=== PATIENT | female | born 1965 | race Caucasian/White ===

== ENCOUNTER → 2023-09-04 13:52 | Outpatient (REF) | payer BC, SELFPAY | LOC: RAD 13:52 | PROVIDERS: ATTENDING PHYSICIAN Family Medicine | DX: I83.899 Varicose veins of unspecified lower extremity with other complications (principal) | CPT/HCPCS: 93970 ==

== ENCOUNTER 2023-10-04 06:58 | Day surgery (SDC) | payer BC, SELFPAY ==
[2023-09-30 09:46] LABS: % Basophils 0.6 % (0-2); % Eosinophils 1.6 % (0-6); % Immature Granulocytes 0.5 % (0-0.5); % Lymphocytes 25.5 % (20.5-51.1); % Monocytes 5.2 % (1.7-9.3); % Neutrophils 66.6 % (42.2-75.2); Absolute Basophils 0.1 10^3/uL (0-0.2); Absolute Eosinophils 0.2 10^3/uL (0-0.7); Absolute Immature Granulocytes 0.1 10^3/uL (0-0.05); Absolute Lymphocytes 2.8 10^3/uL (1.2-3.4); Absolute Monocytes 0.6 10^3/uL (0.1-0.6); Absolute Neutrophils 7.4 10^3/uL (1.4-6.5); Hematocrit 44.3 % (37.0-47.0); Hemoglobin 15.1 g/dL (12.0-16.0); Mean Corp Hgb Conc. 34.1 g/dL (33.0-37.0); Mean Corpuscular Hgb 28.6 pg (27.0-31.0); Mean Corpuscular Volume 83.9 fL (81.0-99.0); Nucleated Red Blood Cells % 0 %; Platelet Count 404 10^3/uL (130-400); Red Blood Cell Count 5.28 10^6/uL (4.20-5.40); Red Cell Dist. Width 12.6 % (11.5-14.5); White Blood Cell Count 11.1 10^3/uL (4.8-10.8)
[2023-09-30 09:57] LABS: APTT 30.2 Sec (23.4-35.0)
[2023-09-30 09:59] LABS: Blood Urea Nitrogen 14 mg/dl (7-17); Calcium 9.5 mg/dl (8.4-10.2); Carbon Dioxide 25 mmol/L (22-30); Chloride 100 mmol/L (98-107); Glucose 106 mg/dl (70-99); Potassium 4.3 mmol/L (3.5-5.1); Sodium 133 mmol/L (135-145); eGFR > 60.00
[2023-09-30 11:07] VITALS: BMI 35.3
--- NOTE | 2023-09-30 13:29 | PTCARENOTE ---
Patients 09/29 EKG abnormal- reviwed by Dr. Madrigal- no additional interventions required
[2023-10-04] VITALS (12 sets, daily range): BP systolic 104–157; BP diastolic 50–86
[2023-10-04] MEDS: PERIDEX 0.12% ORAL RINSE 15 ML PO (07:45)
[2023-10-04] MEDS: BACTROBAN NASAL 1 GRAM NASAL (07:45)
[2023-10-04] MEDS: NSS 500 IV (08:34)
--- NOTE | 2023-10-04 09:08 | W.SUR.PREOP ---
Pre-Operative Surgical Note
-
I have examined this patient prior to the performance of the scheduled procedure.
The patient's condition is unchanged from the time of the current History and
Physical and the patient is able to undergo the scheduled procedure.
--- NOTE | 2023-10-04 10:24 | W.IMMPOSTOP ---
Surgical Immed Post Op Note
-
Primary Surgeon: Johnnie Sandoval III, MD
Assisting Surgeon: Brian Riggs MD
Pre-op Diagnosis: Varicose Veins
Post-op Diagnosis: Varicose Veins
Procedure Performed: Stab Phlebectomy, LLE
Anesthesia Type: General
Specimen / Cultures: Varicose Veins
Estimated Blood Loss: 18cc
Complications: NA
Operative Findings:
Superficial vessels identified and marked preoperatively. 6 superficial stab incisions were made to expose the reticular veins. Hemostats were used to control and remove the veins. 4/6 sites were closed with nylon sutures, with remaining closed with
skin glue. Xeroform gauze overlaid and covered with LAURI wrap.
[2023-10-04] MEDS: SUBLIMAZE 25 MCG IV ×2 (10:29→10:43)
--- NOTE | 2023-10-04 11:10 | OR.RPT ---
Operative Report
Operative Report
Date of Operation: 10/04/2023
Pre Op Diagnosis: Bleeding reticular veins, left lower extremity
Post Op Diagnosis: Bleeding reticular veins, left lower extremity
Procedure: Stab phlebectomies of left lower extremity reticular/varicose veins (6 total stab incisions)
Surgeon: Johnnie Sandoval III, MD
State Assessed Properties Director: Brian Easton MD PGY-1
Anesthesia: General
Complications: None
Estimated Blood Loss: 20 cc
History and Indications for Procedure: 57-year-old female with bleeding episode from superficial reticular veins involving her left distal easotn and ankle. No superficial venous reflux was identified on preoperative venous insufficiency duplex. Due
to the significant bleeding event I recommended stab phlebectomy of the area in question. In the preoperative holding area I marked the varicosities and reticular veins in her left easton and ankle around the area of concern.
Procedure in Detail: Inez Tavares was correctly identified and placed supine on the operating table. After adequate induction of anesthesia the table was placed in reverse Trendelenburg and her left lower extremity and foot were prepped and draped in
the usual sterile fashion. She received preoperative antibiotics. A timeout procedure was performed with the nursing and anesthesia staff confirming the patient's identity as well as the nature and laterality of the procedure.
Using an ophthalmic blade, stab incisions were made over the marked varicosities and reticular veins surrounding the area of concern. Small hooks and fine hemostats were then used to pull up vein segments gently from each stab incision. The
proximal and distal vein segments were then avulsed from each stab incision. A total of 6 separate stab incisions were made to treat the entire area of concern. Following this the wounds were irrigated with saline solution. Hemostasis was
achieved in the wound beds by direct manual pressure. The small stab incisions were closed with skin glue. The larger stab incisions were closed with interrupted 3-0 nylon sutures. Sterile dressings were applied. The lower leg was wrapped in an
Thompson wrap.
The patient tolerated the procedure well was taken to the recovery room in stable condition.
Attestation: I was present and responsible for the entire procedure
Signed:
Johnnie Sandoval III, MD
[facility]
[phone] (cell)
== END 2023-10-04 13:00 | disposition home or self-care (01) ==
LOC: CATH 06:58
PROVIDERS: ATTENDING PHYSICIAN Surgery Vascular Surgery; FAMILY PHYSICIAN Family Medicine
DX: I83.892 Varicose veins of left lower extremity with other complications (principal)
CPT/HCPCS: 37799; 88304; 36415; 80048; 85025; 85610; 85730; 93005

== ENCOUNTER → 2023-11-04 13:39 | Outpatient (REF) | payer BC, SELFPAY | LOC: HWRAD 13:39 | PROVIDERS: ATTENDING PHYSICIAN Registered Nurse; FAMILY PHYSICIAN Family Medicine | DX: I86.8 Varicose veins of other specified sites (principal) | CPT/HCPCS: 74174; Q9967 ==

== ENCOUNTER 2024-02-20 18:06 | Inpatient (IN) | payer BC, SELFPAY ==
[2024-02-20] VITALS (9 sets, daily range): BP systolic 141–184; BP diastolic 72–89; BMI 34.7; BMI 34.2
--- NOTE | 2024-02-20 11:06 | ED.GENMED ---
History of Present Illness
General
Chief Complaint: Abdominal Pain
Source: patient and spouse
Exam Limitations: none
Time Seen by Provider: 02/20/24 10:28
Nursing documentation reviewed up to this point in time: agreed with
History of Present Illness
History of Present Illness:
58-year-old female with past medical history of hypertension presenting to the emergency department today with concerns of upper abdominal pain intermittent over the past few months has been on Protonix worsening over the past 2 days severe this
morning associated nausea and dry heaving. No diarrhea. No chest pain or shortness of breath. She has an appoint with GI in 3 weeks.
Past History
Past History
ED Past Medical History: HTN
ED Past Surgical History: (X 2)
Social History
Tobacco: Former smoker
Alcohol: Occasional
Personal:
Living: with family
Review of Systems
Review of Systems
Allergies reviewed?: Yes
All Other Systems: ROS reviewed and negative except as documented in HPI and ROS
Phy Exam
Physical Exam
Physical Exam:
GENERAL: Alert , in no apparent distress
EYE: pupils equal and reactive
NECK: Supple, no significant adenopathy.
ENT: o/p clr, mmm.
CARDIAC: Regular rate and rhythm .
LUNGS: Clear breath sounds bilaterally, no acute respiratory distress, no wheezes/rales/rhonchi
ABDOMEN: Soft, without focal tenderness, no r/g, no cvat
NEUROLOGICAL: Alert and oriented, no focal neuro deficits
SKIN: Warm and dry, skin intact.
MUSCULOSKELETAL: No edema, well perfused.
PSYCH: Normal and appropriate interaction.
Course
Orders/Labs/Results
Orders:
Orders
02/20/24 10:44
0.9% Sodium Chloride 1000 ml [Nss] 1,000 ml IV BOLUS
Famotidine [Pepcid] 20 mg IV NOW STA
Ondansetron Injectable [Zofran] 4 mg IV NOW STA
US Abdomen Complete/Upper Urgent
Comment:
Reason For Exam: RUQ pain
02/20/24 11:02
Basic Metabolic Panel Urgent
Complete Blood Count/With Diff Urgent
Lipase Urgent
02/20/24 12:43
Add On- LAB Stat
Tests Added?: Hepatic function panel bilirubin
Add On- LAB Urgent
Tests Added?: lft's
02/20/24 14:14
Urinalysis Reflex To Culture Urgent
Date Specimen was Collected: 02/20/24
Time Specimen was Collected: 11:01
Urine Microscopic Reflex Cult Urgent
02/20/24 15:08
0.9% Sodium Chloride 1000 ml [Nss] 1,000 ml IV BOLUS
02/20/24 16:00
Wnjxz-Pliu-Mwsytwi Routine
Abnormal Lab Results
02/20/24 02/20/24
11:02 14:14
WBC 15.6 H 10^3/uL
(4.8-10.8)
Abs Immat Gran (auto) 0.1 H 10^3/uL
(0-0.05)
Absolute Neuts (auto) 13.8 H 10^3/uL
(1.4-6.5)
Absolute Lymphs (auto) 0.9 L 10^3/uL
(1.2-3.4)
Absolute Monos (auto) 0.7 H 10^3/uL
(0.1-0.6)
Immature Gran % 0.6 H %
(0-0.5)
Neutrophils % 88.6 H %
(42.2-75.2)
Lymphocytes % 6.0 L %
(20.5-51.1)
Glucose 126 H mg/dl
(70-99)
Lipase > 4000 H* U/L
(23-300)
Urine Ketones 3+ A
(Negative)
Urine Bilirubin 1+ A
(Negative)
Urine Urobilinogen 2+ A
(Neg - 1+)
Leukocyte Esterase Rfl Trace A
(Negative)
Urine RBC 3-6 A /HPF
(0-2)
Urine Bacteria (Reflex) Few A
(Negative)
02/20/24 11:02
02/20/24 11:02
Vital Signs
Initial and Last Documented VS:
Initial Vital Signs
Temp Pulse Resp BP Pulse Ox
99.4 F 91 16 141/75 98
02/20/24 09:55 02/20/24 09:55 02/20/24 09:55 02/20/24 09:55 02/20/24 09:55
Last Documented Vital Signs
Temp Pulse Resp BP Pulse Ox
99.4 F 91 16 150/74 98
02/20/24 09:55 02/20/24 09:55 02/20/24 09:55 02/20/24 15:00 02/20/24 15:15
MDM/Problems Addressed
MDM/Problems Addressed:
58-year-old female presenting to the emergency department today with concerns of upper abdominal pain worsening over the past 2 days. This morning but since has improved. Has been taking Protonix for likely gastritis or reflux. Has a GI follow-up
in 3 weeks. Here she is some minimal tenderness to the upper abdominal region as well as the right upper quadrant. Lipase resulting greater than 4000 concerning for acute pancreatitis. Ultrasound showing gallstones and potential stone within the
common bile duct with upper limits of normal at 6 mm. Patient with potential gallstone pancreatitis. LFTs initially hemolyzed repeated sample hemolyzed as well. Sample also hemolyzed. Doing well in ER no significant worsening is is discussed
with GI and admitted for further assessment. Additional lab sample sent for LFTs.
*Critical Care Note
Total Time (30-74mins, 75-104mins- exclusive of procedures): Not Applicable
ED Attending Note
-
Portions of this chart may have been created with voice recognition software.� Occasional wrong word or��sound alike� substitutions may have occurred due to the inherent limitations of voice recognition software.
Discharge Plan
Departure
Patient Disposition: Admit
Date of Disposition: 02/20/24
Time of Disposition: 16:08
Admit to: Med/Surg
Admit to doctor: makeda
Presentation/result/management discussed w/ accepting MD/DO: Hospitalist
Patient with high blood pressure during this ER visit?: No
Condition: Good
Covid-19: Not Applicable
Discharge Problem:
Acute pancreatitis
Prescriptions:
No Action
valsartan 80 mg Tablet
80 mg PO HS
Premarin 0.625 mg Tablet
0.625 mg PO DAILY
norethindrone acetate 5 mg Tablet
5 mg PO DAILY
Theragen Tablet
1 tab PO DAILY
pantoprazole [Protonix] 40 mg Tablet,Delayed Release (Dr/Ec)
40 mg PO DAILY
Referrals:
Jimy Shetty MD [Family Provider] -
Interventions
Interventions:
*Risk Screen - Suicide Last Done: 02/20/24 10:51
*General Assessment Last Done: 02/20/24 10:51
*Neglect/Abuse Screening Last Done: 02/20/24 10:51
ED- Fall Risk Assessment Last Done: 02/20/24 10:56
*ED COVID-19 Vaccine History Last Done: 02/20/24 10:51
RD-Enbijr-Merfsqehpw Assessment Last Done: 02/20/24 10:51
Discharge Date and Time
Print Language: FAROESE
[2024-02-20] MEDS: NSS 1000 IV ×2 (11:12→15:23)
[2024-02-20] MEDS: PEPCID 20 MG IV (11:12)
[2024-02-20] MEDS: ZOFRAN 4 MG IV (11:13)
[2024-02-20 11:18] LABS: % Basophils 0.3 % (0-2); % Eosinophils 0.1 % (0-6); % Immature Granulocytes 0.6 % (0-0.5); % Monocytes 4.4 % (1.7-9.3); % Neutrophils 88.6 % (42.2-75.2); Absolute Basophils 0.1 10^3/uL (0-0.2); Absolute Immature Granulocytes 0.1 10^3/uL (0-0.05); Absolute Lymphocytes 0.9 10^3/uL (1.2-3.4); Absolute Monocytes 0.7 10^3/uL (0.1-0.6); Absolute Neutrophils 13.8 10^3/uL (1.4-6.5); Hematocrit 39.2 % (37.0-47.0); Hemoglobin 13.8 g/dL (12.0-16.0); Mean Corp Hgb Conc. 35.2 g/dL (33.0-37.0); Mean Corpuscular Hgb 28.9 pg (27.0-31.0); Nucleated Red Blood Cells % 0 %; Platelet Count 335 10^3/uL (130-400); Red Blood Cell Count 4.78 10^6/uL (4.20-5.40); Red Cell Dist. Width 13.2 % (11.5-14.5); White Blood Cell Count 15.6 10^3/uL (4.8-10.8)
[2024-02-20 11:31] LABS: Blood Urea Nitrogen 11 mg/dl (7-17); Calcium 9.5 mg/dl (8.4-10.2); Carbon Dioxide 24 mmol/L (22-30); Chloride 106 mmol/L (98-107); Estimated Creatinine Clearance 104 ml/min; Glucose 126 mg/dl (70-99); Sodium 137 mmol/L (135-145); eGFR > 60.00
[2024-02-20 11:41] LABS: Lipase > 4000 U/L (23-300)
[2024-02-20 14:38] LABS: Urine Albumin Trace (Neg - Trace); Urine Bilirubin 1+ (Negative); Urine Character Clear (Clear); Urine Color Yellow; Urine Glucose Negative (Negative); Urine Ketone 3+ (Negative); Urine Leukocyte Trace (Negative); Urine Nitrite Negative (Negative); Urine Occult Blood Negative (Negative); Urine Urobilinogen 2+ (Neg - 1+)
[2024-02-20 14:56] LABS: Urine Squamous Cell 26-30 /LPF (Few)
[2024-02-20 15:00] LABS: Urine Bacteria Few (Negative)
--- NOTE | 2024-02-20 16:22 | CON.GI ---
Addendum entered and electronically signed by Gissell Buck DO 02/20/24 16:49:
I saw and examined the patient.
The CASH POSTER or PA's note was reviewed and I agree with the note.
Comment: Inez is a 58-year-old female with past medical history of hypertension admitted with complaints of of right upper quadrant abdominal pain which has been worsening over the past few months despite Protonix, this morning developed nausea and
dry heaving which is what prompted her to come in for evaluation. On arrival she was found to have a leukocytosis of 15,000, lipase greater than 4000, LFTs currently pending. BUN 11. Abdominal US showed cholelithiasis w/o cholecystitis, with stone
in CBD c/w choledocholithiasis. At time of evaluation, patients abdominal pain had resolved, though, had received pain medication prior.
Gallstone Pancreatitis c/b choledocholithiasis
-leukocytosis, afebrile, hemodynamically stable, no signs of cholangitis
-IVF
-antiemetics, analgesia
-NPO PMN for possible ERCP tomorrow --> given improvement in pain, will check MRI/MRCP
-surgical consult for eventual cholecystectomy
Original Note:
Consultation
-
Date/Time Consultation Requested: 02/20/24 1600
Date/Time Consultation Performed: 02/20/24 1600
Requesting Provider: Dr. Dudley
Performing Provider: Dr. Buck/YUDY Acharya
Reason for Consultation: choledocholithiasis, pancreatitis
Medical History
Chief Complaint / HPI
Chief Complaint: abd pain
History of Present Illness:
58-year-old female with past medical history of hypertension, venous insufficiency, seasonal allergies presents to the emergency room with severe abdominal pain, nausea and vomiting. Asked to evaluate for choledocholithiasis and pancreatitis. The
patient states that on January 11 she developed intermittent epigastric pain that was sharp. It was also associated with intermittent nausea and vomiting. Patient had progressive symptoms starting this past Saturday. She also noted bilirubinuria
this morning. After eating eggs, avocado and toast last evening she had significant pain with doubling over associated with nausea and vomiting. She presented to her PCPs office and at the request she came over to the hospital. She did feel hot
and cold. Tmax here was 99.4. She never kept the temperature at home. She denies any melena, hematochezia, dysphagia or dyne aphasia. No early satiety or unintentional weight loss. She did have bilirubinuria. She has not had a bowel movement
in the past day. She did not notice any acholic stools prior to this. She has had no recent change in medications. She does not drink any alcohol. She states she had an episode similar to this approximately a year ago. At that time she had labs
and ultrasound performed was told they were normal.Prior to her arrival in the emergency room she was seen by PCP as an outpatient started on pantoprazole without any relief. She also had outpatient labs which per her report were within normal
limits. At the present time she has WBC count of 15.6, hemoglobin 13.8, medic at 39.2, platelet count 335, sodium of 137, potassium hemolyzed, chloride 106, CO2 24, BUN 11, creatinine 0.6, glucose 126, calcium 9.5 LFTs are pending as the labs were
hemolyzed. Lipase greater than 4000. UA was positive for ketones, positive for bilirubin, positive for urobilinogen, positive for trace leukocytes positive for 3-5 RBCs with few bacteria and trace albumin. Ultrasound of the abdomen shows
cholelithiasis without any evidence of acute cholecystitis. There is a stone within the common bile duct that measures 6 mm. The common bile duct also measured 6 mm. The pancreas appears normal on ultrasound imaging.
Past Medical History
Past Medical History: HTN and Other (Venous insufficiency, seasonal allergies)
Past Surgical History: and Other (Left leg phlebectomy)
Social History
Tobacco: Non-Smoker
Alcohol: None
Drug: None
Personal:
Living: With Family
Employment: Employed
Family History
Family History: Other (Maternal aunt with history of colon cancer, no family history of IBD)
Allergies / Home Medications
Allergy/AdvReac Type Severity Reaction Status Date / Time
Sulfa (Sulfonamide Allergy SWELLING Verified 02/20/24 09:55
Antibiotics) AND REDNESS
�Medication �Instructions �Recorded
conjugated estrogens 0.625 mg 0.625 mg PO DAILY 09/26/23
tablet (Premarin)
norethindrone acetate 5 mg tablet 5 mg PO DAILY 09/26/23
valsartan 80 mg tablet 80 mg PO HS 09/26/23
pantoprazole 40 mg tablet,delayed 40 mg PO DAILY 02/20/24
release (Protonix)
therapeutic multivitamin 1 tab PO DAILY 02/20/24
Review of Systems
-
All other systems: A 12 pt ROS was Negative except as stated above in HPI
Vital Signs
Temp Pulse Resp BP Pulse Ox
99.4 F 91 16 150/74 98
02/20/24 09:55 02/20/24 09:55 02/20/24 09:55 02/20/24 15:00 02/20/24 15:15
Physical Exam
Exam
General: No Apparent Distress
HEENT: Anicteric
Respiratory: Clear
Cardiac: Regular Rhythm
GI: Soft, Non Tender, Non Distended and Normal Bowel Sounds
Musculoskeletal: No Edema
Skin: Warm and Dry
Neuro: AO x 3
Psych: Calm
Results
WBC 15.6 10^3/uL (4.8-10.8) H 02/20/24 11:02
Hgb 13.8 g/dL (12.0-16.0) 02/20/24 11:02
Hct 39.2 % (37.0-47.0) 02/20/24 11:02
MCV 82.0 fL (81.0-99.0) 02/20/24 11:02
Plt Count 335 10^3/uL (130-400) 02/20/24 11:02
Absolute Neuts (auto) 13.8 10^3/uL (1.4-6.5) H 02/20/24 11:02
Sodium 137 mmol/L (135-145) 02/20/24 11:02
Potassium mmol/L (3.5-5.1) 02/20/24 11:02
Chloride 106 mmol/L (98-107) 02/20/24 11:02
Carbon Dioxide 24 mmol/L (22-30) 02/20/24 11:02
BUN 11 mg/dl (7-17) 02/20/24 11:02
Creatinine 0.6 mg/dL (0.6-1.0) 02/20/24 11:02
Calcium 9.5 mg/dl (8.4-10.2) 02/20/24 11:02
Total Bilirubin Cancelled 02/20/24 15:12
AST Cancelled 02/20/24 15:12
ALT Cancelled 02/20/24 15:12
Alkaline Phosphatase Cancelled 02/20/24 15:12
Lipase > 4000 U/L (23-300) H* 02/20/24 11:02
Diagnostic Image Results:
US Abd:
IMPRESSION:
Cholelithiasis without evidence of acute cholecystitis.
There is a stone within the common bile duct. The common bile duct is upper limits of normal at 6 mm. No evidence of intrahepatic biliary ductal dilation. Consider correlation with lab values if there is concern for biliary obstruction.
Prior GI Procedures:
EGD: Never
Colonoscopy: 09/10/2016 ([facility]): - Perianal skin tag found on perianal exam.
- Non-bleeding internal hemorrhoids.
- One 3 mm polyp in the sigmoid colon, removed with a
jumbo cold forceps. Resected and retrieved. (Hyperplastic polyp)
- Diverticulosis in the sigmoid colon.
- The examined portion of the ileum was normal.
- The examination was otherwise normal.
Assessment / Plan
-
58-year-old female with past medical history of hypertension, venous insufficiency, seasonal allergies presents to the emergency room with severe abdominal pain, nausea and vomiting. Asked to evaluate for choledocholithiasis and pancreatitis. The
patient states that on January 11 she developed intermittent epigastric pain that was sharp. It was also associated with intermittent nausea and vomiting. Patient had progressive symptoms starting this past Saturday. She also noted bilirubinuria
this morning. After eating eggs, avocado and toast last evening she had significant pain with doubling over associated with nausea and vomiting. She presented to her PCPs office and at the request she came over to the hospital. Patient currently
mildly febrile at 99.8. At the present time she has WBC count of 15.6, hemoglobin 13.8, medic at 39.2, platelet count 335, sodium of 137, potassium hemolyzed, chloride 106, CO2 24, BUN 11, creatinine 0.6, glucose 126, calcium 9.5 LFTs are pending
as the labs were hemolyzed. Lipase greater than 4000. UA was positive for ketones, positive for bilirubin, positive for urobilinogen, positive for trace leukocytes positive for 3-5 RBCs with few bacteria and trace albumin. Ultrasound of the
abdomen shows cholelithiasis without any evidence of acute cholecystitis. There is a stone within the common bile duct that measures 6 mm. The common bile duct also measured 6 mm. The pancreas appears normal on ultrasound imaging.
Impression:
Choledocholithiasis-> 6 mm CBD stone seen on ultrasound
Gallstone pancreatitis
Cholelithiasis
Plan:
-Await LFTs, they have tried 3 times with hemolysis on all results
-Plan MRI/MRCP
-Aggressive IV fluids
-Incentive spirometer
-N.p.o. except for essential p.o. meds
-Will tentatively plan for ERCP tomorrow
-CBC, BMP, LFTs, PT/INR, lipase in a.m.
-Analgesia per internal medicine
-Antiemetics per internal medicine
-Recommend follow-up with surgery to discuss cholecystectomy, most likely as an outpatient.
-Further recommendations to be forthcoming
-
-
Thank you for consultation and allowing me to participate in the patient's care. Please call the voice data communications engineer GI physician during the after hours with any questions or concerns.
--- NOTE | 2024-02-20 17:09 | HPS.HSE ---
Family Physician
-
Family Physician: Jimy Shetty
Chief Complaint
-
epigastric pain
History of Present Illness
58-year-old female with past medical history of hypertension presenting to the emergency department today with concerns of upper abdominal pain intermittent since January 11 .in the beginning she was vomiting after eating .she was prescribed Protonix
assuming gastritis. She was continued to have intermittent epigastric pain .patient was following up with PCP. PCP recommended Protonix twice a day since Saturday. Today she noticed excruciating epigastric pain associate with dry heaves. Denied
any vomiting. Patient denied any fever, chills, chest pain, short of breath. Patient denied headache, dizziness, syncopal episode. Patient denied dysuria hematuria.
Ultrasound of abdomen with impression Cholelithiasis without evidence of acute cholecystitis.There is a stone within the common bile duct. The common bile duct is upper limits of normal at 6 mm. No evidence of intrahepatic biliary ductal dilation.
Consider correlation with lab values if there is concern for biliary obstruction.
Admitting for further management
Medical History
Past Medical History
Past Medical History: Reports Other
Additional Past Medical History:
Chronic venous insufficiency
Hypertension
Hyperlipidemia
GERD
Endocarditis
Past Surgical History: Reports Other
Additional Past Surgical History:
Stab phlebectomy
Social History
Tobacco: Former Smoker
Alcohol: None
Drug: None
Living: With Family
Employment: Employed
Family History
Family History: Not pertinent
Allergies / Home Medications
Allergies reflects when Allergies were last updated in [facility].
Home Medications with original date entered in [facility]
Allergy/Medication List:
Allergies
Allergy/AdvReac Type Severity Reaction Status Date / Time
Sulfa (Sulfonamide Allergy SWELLING Verified 02/20/24 09:55
Antibiotics) AND REDNESS
Home Medications
conjugated estrogens 0.625 mg tablet (Premarin) 0.625 mg PO DAILY 09/26/23
norethindrone acetate 5 mg tablet 5 mg PO DAILY 09/26/23
valsartan 80 mg tablet 80 mg PO HS 09/26/23
pantoprazole 40 mg tablet,delayed release (Protonix) 40 mg PO DAILY 02/20/24
therapeutic multivitamin 1 tab PO DAILY 02/20/24
Review of Systems
-
Constitutional: Reports No Symptoms
EENT: Reports No Symptoms
Respiratory: Reports No Symptoms
Cardiac: Reports No Symptoms
Abdomen/GI: Reports Abdominal Pain, Nausea and Vomiting
: Reports No Symptoms
Musculoskeletal: Reports No Symptoms
Skin: Reports No Symptoms
Neurological: Reports No Symptoms
Endocrine: Reports No Symptoms
Hematologic/Lymphatic: Reports No Symptoms
Psych: Reports No Symptoms
Physical Exam
Vital Signs
Vital Signs
Temp Pulse Resp BP Pulse Ox
99.4 F 91 16 150/74 98
02/20/24 09:55 02/20/24 09:55 02/20/24 09:55 02/20/24 15:00 02/20/24 15:15
Physical Exam
General: Well Developed, Well Nourished and No Apparent Distress
HEENT: NormoCephalic, Moist mucous membranes and Atraumatic
Respiratory: Clear
Cardiac: S1/S2 and Regular Rhythm; No Murmur or Rub
GI: Soft, Non Tender, Non Distended and Normal Bowel Sounds; No Organomegaly
Rectal: Deferred by Provider
Musculoskeletal: No Clubbing, No Cyanosis and No Edema
Skin: No Rash
Neuro: AO x 3 and Nonfocal/grossly intact
Psych: Calm
Laboratory Results
-
02/20/24 11:02
02/20/24 11:02
Laboratory Results
Total Bilirubin Cancelled 02/20/24 15:12
AST Cancelled 02/20/24 15:12
ALT Cancelled 02/20/24 15:12
Alkaline Phosphatase Cancelled 02/20/24 15:12
Lipase > 4000 U/L (23-300) H* 02/20/24 11:02
Data Reviewed
-
CT Scan: Report Reviewed by me
Lab Data: Labs Reviewed by me
Impression/Plan
-
# Acute pancreatitis possible gallstone pancreatitis
-Ultrasound showing cholelithiasis without evidence of acute cholecystitis.There is a stone within the common bile duct. The common bile duct is upper limits of normal at 6 mm. No evidence of intrahepatic biliary ductal dilation. Consider
correlation with lab values if there is concern for biliary obstruction.
-WBCs 15.6, patient is afebrile
-Lipase is greater than 4000
-LFTs pending
-Keep patient n.p.o.
-For ERCP tomorrow
-MRCP
-Zofran as needed for nausea vomiting, Dilaudid as needed for pain
-Fluids continued
-GI consulted
# Essential hypertension
-Blood pressure stable
-Losartan continued
# DVT prophylaxis
-Lovenox subcu
# CODE STATUS
-Full code
--- NOTE | 2024-02-20 18:10 | W.PN.UPDATE ---
Update Note
Progress Note Update
This note serves as an addendum to the H&P by YUDY Singh, on February 20, 2024.
History of Presenting Illness
58-year-old female with past medical history of hypertension presented to the emergency department today with concerns of upper abdominal pain intermittent since January 12, 2024. Patient had been on outpatient Protonix which was intensified recently
but had not been helping. Today, her epigastric pain got a whole lot worse.
Physical Exam
General: Not in acute distress
HEENT: Normocephalic
Respiratory: Clear to Auscultation Bilaterally
Cardiac: S1/S2 and Regular Rhythm
GI: Soft, Non Tender, Non Distended and Normal Bowel Sounds
Musculoskeletal: No Cyanosis and No Edema
Skin: Warm. Dry.
Neuro: AAO x 3 and Nonfocal/grossly intact
Psych: Calm
Assessment/Plan
# Acute pancreatitis possible gallstone pancreatitis
-Ultrasound showing cholelithiasis without evidence of acute cholecystitis.There is a stone within the common bile duct. The common bile duct is upper limits of normal at 6 mm. No evidence of intrahepatic biliary ductal dilation. Consider
correlation with lab values if there is concern for biliary obstruction.
-WBCs 15.6, patient is afebrile
-Lipase is greater than 4000
-LFTs pending
-Keep patient n.p.o.
-Pain control
-For ERCP tomorrow
-MRCP
-Zofran as needed for nausea vomiting, Dilaudid as needed for pain
-Continue aggressive IV fluids
-GI consulted, recommendations appreciated
# Essential hypertension
-Blood pressure stable
-Losartan continued
# DVT prophylaxis
-Lovenox subcu
# CODE STATUS
-Full code
--- NOTE | 2024-02-20 18:49 | PTCARENOTE ---
Patient received from ED, ambulated to bed in her room. AOx3, no acute complaints.
[2024-02-20 19:18] LABS: ALT (SGPT) 384 U/L (0-35); AST (SGOT) 294 U/L (14-36); Alkaline Phosphatase 157 U/L (38-126); Direct Bilirubin 0.5 mg/dl (0.0-0.4); Total Bilirubin 1.2 mg/dl (0.2-1.3); Total Protein 6.4 g/dl (6.3-8.2)
[2024-02-20] MEDS: LR 1000 IV (21:46)
[2024-02-20] MEDS: LOVENOX 40 MG SC (21:46)
[2024-02-20] MEDS: DIOVAN 80 MG PO (21:49)
[2024-02-21] VITALS (11 sets, daily range): BP systolic 142–176; BP diastolic 69–110
--- NOTE | 2024-02-21 04:16 | PTCARENOTE ---
This RN assumed care of this patient at 0330 am.
[2024-02-21] MEDS: LR IV ×3 (06:51→12:36)
[2024-02-21 07:07] LABS: Hematocrit 34.3 % (37.0-47.0); Hemoglobin 12.2 g/dL (12.0-16.0); Mean Corp Hgb Conc. 35.6 g/dL (33.0-37.0); Mean Corpuscular Hgb 29.3 pg (27.0-31.0); Mean Corpuscular Volume 82.3 fL (81.0-99.0); Mean Platelet Volume 9.2 fL (7.4-10.4); Platelet Count 318 10^3/uL (130-400); Red Blood Cell Count 4.17 10^6/uL (4.20-5.40); Red Cell Dist. Width 13.4 % (11.5-14.5); White Blood Cell Count 9.2 10^3/uL (4.8-10.8)
[2024-02-21 07:15] LABS: INR 1.13; PT 14.6 Sec (11.4-14.6)
[2024-02-21 07:33] LABS: ALT (SGPT) 296 U/L (0-35); AST (SGOT) 128 U/L (14-36); Albumin 3.5 g/dl (3.5-5.0); Alkaline Phosphatase 125 U/L (38-126); Blood Urea Nitrogen 9 mg/dl (7-17); Calcium 8.8 mg/dl (8.4-10.2); Carbon Dioxide 21 mmol/L (22-30); Chloride 111 mmol/L (98-107); Direct Bilirubin 0.2 mg/dl (0.0-0.4); Estimated Creatinine Clearance 103 ml/min; Glucose 83 mg/dl (70-99); Lipase 90 U/L (23-300); Potassium 3.8 mmol/L (3.5-5.1); Sodium 139 mmol/L (135-145); Total Bilirubin 0.9 mg/dl (0.2-1.3); Total Protein 5.7 g/dl (6.3-8.2); eGFR > 60.00
--- NOTE | 2024-02-21 08:00 | PTCARENOTE ---
Notified provider of patient's BP in AM - Amlodipine ordered.
[2024-02-21] MEDS: PREMARIN 0.625 MG PO (08:45)
[2024-02-21] MEDS: PROTONIX IV 40 MG IV (08:45)
[2024-02-21] MEDS: NSS (PRESERVATIVE FREE) 10 ML IV (08:45)
[2024-02-21] MEDS: NORVASC 2.5 MG PO (08:50)
[2024-02-21] MEDS: LR 1000 IV ×3 (09:48→23:40)
--- NOTE | 2024-02-21 15:25 | W.PN.UPDATE ---
Update Note
Progress Note Update
reviewed MRI with patient with narrowing and stone. Await Dr. Brandt input for ERCP this afternoon.
--- NOTE | 2024-02-21 15:30 | W.PN.HOSP.TC ---
Today's Communication/Plan
-
MRI abdomen results noted
Await GI input into ERCP
Assessment / Plan
Assessment / Plan
Physical Exam
General: Not in acute distress
HEENT: Normocephalic
Respiratory: Clear to Auscultation Bilaterally
Cardiac: S1/S2 and Regular Rhythm
GI: Soft, Non Tender, Non Distended and Normal Bowel Sounds
Musculoskeletal: No Cyanosis and No Edema
Skin: Warm. Dry.
Neuro: AAO x 3 and Nonfocal/grossly intact
Psych: Calm

MRI Abdomen, as per radiologist's report
IMPRESSION:
1. Segmental strictures in the distal common bile duct and right bile duct. Diagnostic possibilities are (1) primary sclerosing cholangitis, (2) infectious cholangitis, or (3) bile duct carcinoma.
2. Stone or debris in the common bile duct.
3. Mild edema around the left adrenal gland.

Assessment/Plan
# Acute pancreatitis possible gallstone pancreatitis
# Cholelithiasis
# Leukocytosis
-WBCs 15.6, patient is afebrile
-Lipase is greater than 4000
-LFTs improving
-Keep patient n.p.o. for now
-Pain control
-GI to evaluate for ERCP
-Zofran as needed for nausea vomiting, Dilaudid as needed for pain
-Continue aggressive IV fluids
-GI consulted, recommendations appreciated
# Essential hypertension
-Blood pressure high into the 170s and 180s
-Valsartan continued
-Added Amlodipine
# DVT prophylaxis
-Lovenox subcu
# CODE STATUS
-Full code
Anticipated Discharge: > 48 hours
Subjective/Interval History
-
Date of Service: February 21, 2024
Patient was seen and examined. She denied any abdominal pain or any other symptoms or complaints.
Objective Data
-
Labs:
Laboratory Results
02/21/24
06:24
WBC 9.2
Hgb 12.2
Hct 34.3 L
Plt Count 318
PT 14.6
INR 1.13
Sodium 139
Potassium 3.8
Chloride 111 H
Carbon Dioxide 21 L
BUN 9
Creatinine 0.6
Glucose 83
Calcium 8.8
Total Bilirubin 0.9
AST 128 H
ALT 296 H
Alkaline Phosphatase 125
Vital Signs:
Vital Signs
Temp Pulse Resp BP Pulse Ox
99 F 87 20 174/88 97
02/21/24 11:47 02/21/24 11:47 02/21/24 11:47 02/21/24 11:47 02/21/24 11:47
I&O
02/20/24 02/21/24 02/22/24
06:59 06:59 06:59
Intake Total 0 / 0
Balance 0 / 0
--- NOTE | 2024-02-21 16:56 | CM ---
manager science reviewed patient's chart and met with patient and patient lives with spouse in a multilevel home, was independent with adl's and ambulation, no dme
PCP: Dr. Jimy Shetty
Pharmacy; [facility].
Home when stable, no needs.
[2024-02-21] MEDS: LOVENOX SC (17:48)
[2024-02-21] MEDS: ZOFRAN 4 MG IV (19:20)
--- NOTE | 2024-02-21 20:13 | PTCARENOTE ---
Pt returned from ERCP. VSS. NSR/ST mon the monitor. No c/o at this time.
[2024-02-21] MEDS: DIOVAN 80 MG PO (20:59)
[2024-02-22 03:00] VITALS: BP 138/72
[2024-02-22] MEDS: LR 1000 IV (04:43)
[2024-02-22 07:08] LABS: Hematocrit 34.9 % (37.0-47.0); Hemoglobin 12.1 g/dL (12.0-16.0); Mean Corp Hgb Conc. 34.7 g/dL (33.0-37.0); Mean Corpuscular Hgb 28.5 pg (27.0-31.0); Mean Corpuscular Volume 82.1 fL (81.0-99.0); Mean Platelet Volume 9.6 fL (7.4-10.4); Platelet Count 325 10^3/uL (130-400); Red Blood Cell Count 4.25 10^6/uL (4.20-5.40); Red Cell Dist. Width 13.2 % (11.5-14.5); White Blood Cell Count 10.5 10^3/uL (4.8-10.8)
[2024-02-22 07:57] VITALS: BP 141/71
--- NOTE | 2024-02-22 08:56 | CON.GS ---
Consultation
-
Reason for Consultation: Gallstone pancreatitis
Medical History
-
Chief Complaint: Abdominal pain
History of Present Illness:
Patient is a 58-year-old female who has had intermittent postprandial epigastric abdominal pain since this past December. She had 1 similar episode a year or so ago prompting emergency department evaluation with a negative workup including no
gallstones visualized. Since December she has had recurrent episodes of postprandial epigastric pain. She is being treated for GERD with PPI but was having breakthrough symptoms after initially feeling as though she was getting some relief. The past
week her symptoms acutely deteriorated to the point that she was in intractable pain home and work prompting emergency department evaluation and identification of choledocholithiasis with gallstone mediated pancreatitis. Surgical consultation
requested for assistance with evaluation and treatment.
Patient states that she feels well this a.m. She has some mild lingering discomfort but no pain. No nausea. Appetite fair and beginning to return. No vomiting.
Past Medical History
Past Medical History: HTN and Other (Obesity with BMI of 34.2)
Past Surgical History: and Other (Stab phlebectomy left lower extremity,)
Social History
Tobacco: Non-Smoker
Alcohol: None
Living: With Family
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
Family History
Family History: Reviewed & Noncontributory
Allergies / Home Medications
Allergy/AdvReac Type Severity Reaction Status Date / Time
Sulfa (Sulfonamide Allergy SWELLING Verified 02/20/24 09:55
Antibiotics) AND REDNESS
�Medication �Instructions �Recorded �Confirmed �Type
conjugated estrogens 0.625 mg 0.625 mg PO DAILY Hormonal Agent 09/26/23 02/20/24 History
tablet (Premarin)
norethindrone acetate 5 mg tablet 5 mg PO DAILY Hormonal Agent 09/26/23 02/20/24 History
valsartan 80 mg tablet 80 mg PO HS Blood Pressure 09/26/23 02/20/24 History
pantoprazole 40 mg tablet,delayed 40 mg PO DAILY Gastrointestinal 02/20/24 02/20/24 History
release (Protonix) Issue
therapeutic multivitamin 1 tab PO DAILY Supplement 02/20/24 02/20/24 History
Review of Systems
-
History Source: Patient
All other systems: Negative unless noted
A 10 point review of systems was completed, and was negative except as per HPI.
Physical Exam
Vital Signs
Temp Pulse Resp BP Pulse Ox
98.3 F 75 20 141/71 97
02/22/24 07:57 02/22/24 07:57 02/22/24 07:57 02/22/24 07:57 02/22/24 07:57
02/21/24 02/22/24 02/23/24
06:59 06:59 06:59
Actual Weight 84.844 kg
Body Mass Index (BMI) 34.2
Lab Results
02/22/24 06:16
WBC 10.5 10^3/uL (4.8-10.8) 02/22/24 06:16
Hgb 12.1 g/dL (12.0-16.0) 02/22/24 06:16
Hct 34.9 % (37.0-47.0) L 02/22/24 06:16
Plt Count 325 10^3/uL (130-400) 02/22/24 06:16
Abs Immat Gran (auto) 0.1 10^3/uL (0-0.05) H 02/20/24 11:02
Neutrophils % 88.6 % (42.2-75.2) H 02/20/24 11:02
Physical Exam
General: Well Developed, Well Nourished, No Apparent Distress and Comfortable
HEENT: Normocephalic, Anicteric and Moist Mucous Membranes
Respiratory: Non Labored Respirations
GI: Soft, Non Distended and Tender (Slight epigastric and right upper quadrant tenderness. No rebound. No rigidity. No guarding)
Skin: Warm
Neuro: AO x 3
Psych: Calm
Data Reviewed
-
CT Scan: Image Personally Visualized and interpreted
Ultrasound: Image Personally Visualized and interpreted
MRI: Image Personally Visualized and interpreted
Labs: Labs Reviewed by me
Assessment / Plan
-
Assessment: 58-year-old female initially admitted with gallstone mediated pancreatitis, now postprocedure day #1 status post ERCP sphincterotomy and stone extraction.
Ultrasound suggestive of small gallstones/sludge
MRCP with choledocholithiasis possible, biliary strictures, no additional gallstones noted on MR imaging within gallbladder lumen. No radiographic findings suggestive of cholecystitis.
Prior old CT imaging reviewed as well and unremarkable.
ERCP only notable for choledocholithiasis, no biliary abnormalities such as strictures or masses
Lengthy discussions with patient reviewing pathophysiology of gallstone mediated acute pancreatitis and indications for cholecystectomy. Patient advises myself that she has an upcoming wedding in March for her son and a lot of planning to do to
get ready. Her preference is to defer on cholecystectomy until after the wedding with the understanding that there is the risk for recurrence. However if MRI imaging is correct there are no additional obvious gallstones within the gallbladder
lumen and she may have passed the single stone which was extracted with ERCP yesterday. This may mean that her recurrence risk could be lower than average while awaiting interval cholecystectomy. That being said I still offered patient
cholecystectomy today. After our discussions she confirms desire for interval cholecystectomy instead.
Plan: Low-fat diet as tolerated from surgical standpoint
DC home and as an outpatient my office will follow-up with patient to schedule interval cholecystectomy at a date which better accommodates the patient's plans/schedule.
[2024-02-22] MEDS: PROTONIX IV IV (09:02)
[2024-02-22] MEDS: NSS (PRESERVATIVE FREE) IV (09:02)
[2024-02-22] MEDS: PREMARIN PO (09:04)
[2024-02-22] MEDS: NORVASC 2.5 MG PO (09:04)
[2024-02-22 09:30] LABS: ALT (SGPT) 237 U/L (0-35); AST (SGOT) 76 U/L (14-36); Albumin 3.6 g/dl (3.5-5.0); Alkaline Phosphatase 128 U/L (38-126); Blood Urea Nitrogen 7 mg/dl (7-17); Calcium 8.8 mg/dl (8.4-10.2); Carbon Dioxide 20 mmol/L (22-30); Chloride 105 mmol/L (98-107); Estimated Creatinine Clearance 103 ml/min; Glucose 111 mg/dl (70-99); Potassium 4.2 mmol/L (3.5-5.1); Sodium 135 mmol/L (135-145); Total Bilirubin 0.8 mg/dl (0.2-1.3); Total Protein 5.9 g/dl (6.3-8.2); eGFR > 60.00
[2024-02-22] MEDS: NON-FORMULARY ITEM 1 UNIT PO ×2 (10:45→10:46)
[2024-02-22] MEDS: NON-FORMULARY ITEM PO (10:53)
--- NOTE | 2024-02-22 11:44 | W.PN.GI.CBS2 ---
Addendum entered and electronically signed by Renato Rosas MD 02/22/24 14:43:
I saw and examined the patient.
The ELECTROMEDICAL SERVICE ENGINEER or PA's note was reviewed and I agree with the note.
Comment: 58 yo F with gallstone panc with choledocho.
MRI with biliary strictures not appreciated on eus/ercp.
Reviewed Dr. Brandt's note recommend mrcp 4 weeks.
D/w Dr. Main who evaluated pt and planning on ccy.
tolerating diet, lfts improved, no pain.
d/w hospitalist plan discharge today gi will sign off pls call with ?s
Original Note:
Today's Communication / Plan
-
s/p ERCP/EUS as noted
tolerating diet pain improved
LFT's improving
s/p surgical eval opting for OP franc
reviewed results of EUS/ERCP-- plan OP MRI 4 weeks and follow up if office slip given to patient -- message sent to office for precert and scheduling follow up
to repeat LFT's with PCP 1-2 weeks
return for recurrent pain, fever or problems
all questions answered
Assessment / Plan
-
58-year-old female with past medical history of hypertension, venous insufficiency, seasonal allergies presents to the emergency room with severe abdominal pain, nausea and vomiting. Asked to evaluate for choledocholithiasis and pancreatitis. The
patient states that on January 11 she developed intermittent epigastric pain that was sharp. It was also associated with intermittent nausea and vomiting. Patient had progressive symptoms starting this past Saturday. She also noted bilirubinuria
this morning. After eating eggs, avocado and toast last evening she had significant pain with doubling over associated with nausea and vomiting. She presented to her PCPs office and at the request she came over to the hospital. Patient currently
mildly febrile at 99.8. At the present time she has WBC count of 15.6, hemoglobin 13.8, medic at 39.2, platelet count 335, sodium of 137, potassium hemolyzed, chloride 106, CO2 24, BUN 11, creatinine 0.6, glucose 126, calcium 9.5 LFTs are pending
as the labs were hemolyzed. Lipase greater than 4000. UA was positive for ketones, positive for bilirubin, positive for urobilinogen, positive for trace leukocytes positive for 3-5 RBCs with few bacteria and trace albumin. Ultrasound of the
abdomen shows cholelithiasis without any evidence of acute cholecystitis. There is a stone within the common bile duct that measures 6 mm. The common bile duct also measured 6 mm. The pancreas appears normal on ultrasound imaging.
02/20 MR with and without
1. Segmental strictures in the distal common bile duct and right bile duct. Diagnostic possibilities are (1) primary sclerosing cholangitis, (2) infectious cholangitis, or (3) bile duct carcinoma.
2. Stone or debris in the common bile duct.
3. Mild edema around the left adrenal gland.
02/20 ERCP= CBD dilated no stenosis choledocholithiasis with removal with balloon sweep/shincterotomy
02/20 EUS no pathology in pancreas, CBD 8 mm, stone in lower third of main duct, no pathology in liver
Impression:
Choledocholithiasis-> 6 mm CBD stone seen on ultrasound
Gallstone pancreatitis
Cholelithiasis
abnormal MRI with CBD stricture-- not noted on follow up EUS/ERCP
Plan:
s/p ERCP/EUS as noted
tolerating diet pain improved
LFT's improving
s/p surgical eval opting for OP franc
reviewed results of EUS/ERCP-- plan OP MRI 4 weeks and follow up if office slip given to patient -- message sent to office for precert and scheduling follow up
to repeat LFT's with PCP 1-2 weeks
return for recurrent pain, fever or problems
all questions answered
Subjective
Subjective
Date of Service: February 22, 2024
02/21 brown stool on low fat diet feeling well for discharge today
Objective
Data Reviewed
Laboratory Data:
Laboratory Results
02/22/24 06:16
02/22/24 06:16
Laboratory Results
PT 14.6 Sec (11.4-14.6) 02/21/24 06:24
INR 1.13 02/21/24 06:24
Total Bilirubin 0.8 mg/dl (0.2-1.3) 02/22/24 06:16
AST 76 U/L (14-36) H 02/22/24 06:16
ALT 237 U/L (0-35) H 02/22/24 06:16
Alkaline Phosphatase 128 U/L (38-126) H 02/22/24 06:16
Lipase 90 U/L (23-300) 02/21/24 06:24
Vital Signs and I&O:
Vital Signs
Temp Pulse Resp BP Pulse Ox
98.3 F 75 20 141/71 97
02/22/24 07:57 02/22/24 09:04 02/22/24 07:57 02/22/24 09:04 02/22/24 07:57
I&O
02/21/24 02/22/24 02/23/24
06:59 06:59 06:59
Intake Total 0 / 0 2720 / 2720
Balance 0 / 0 2720 / 2720
Physical Exam
Physical Exam
HEENT: Other (jaundice )
Cardiology: Normal Sinus Rhythm
Pulmonary: Clear
GI: Soft, Non Distended and Non Tender
Extremities: No Edema
Neuro: Non Focal
[2024-02-22 11:58] VITALS: BP 153/78
--- NOTE | 2024-02-22 14:00 | W.PN.HOSP.TC ---
Today's Communication/Plan
-
Discharge today
Assessment / Plan
Assessment / Plan
Physical Exam
General: Not in acute distress
HEENT: Normocephalic
Respiratory: Clear to Auscultation Bilaterally
Cardiac: S1/S2 and Regular Rhythm
GI: Soft, Non Tender, Non Distended and Normal Bowel Sounds
Musculoskeletal: No Cyanosis and No Edema
Skin: Warm. Dry.
Neuro: AAO x 3 and Nonfocal/grossly intact
Psych: Calm

MRI Abdomen, as per radiologist's report
IMPRESSION:
1. Segmental strictures in the distal common bile duct and right bile duct. Diagnostic possibilities are (1) primary sclerosing cholangitis, (2) infectious cholangitis, or (3) bile duct carcinoma.
2. Stone or debris in the common bile duct.
3. Mild edema around the left adrenal gland.

Assessment/Plan
# Acute pancreatitis possible gallstone pancreatitis
# Cholelithiasis
# Leukocytosis
-WBCs 15.6, patient is afebrile
-Lipase is greater than 4000
-Repeat LFTs outpatient with PCP in 1 to 2 weeks
-Outpatient abdominal MRI in 4 weeks -- follow-up with gastroenterology outpatient
-Zofran as needed for nausea vomiting, Dilaudid as needed for pain
-Continue aggressive IV fluids
-GI consulted, recommendations appreciated
-Surgery discussed lap franc with patient: outpatient surgery follow-up with patient to schedule interval cholecystectomy at a date which better accommodates the patient's plans/schedule
# Essential hypertension
-Blood pressure high into the 170s and 180s
-Valsartan continued
-Added Amlodipine
# DVT prophylaxis
-Lovenox subcu
# CODE STATUS
-Full code
More than 30 minutes spent in discharge including
Final examination of the patient
Summarizing hospital stay
Instructions for continuing care to all relevant caregivers
Preparation of discharge records, prescriptions, and referral forms
Total time spent (in minutes): 43
Anticipated Discharge: Today
Subjective/Interval History
-
Date of Service: February 22, 2024
Patient was seen and examined. She denied any abdominal pain or any other symptoms or complaints.
Objective Data
-
Labs:
Laboratory Results
02/22/24
06:16
WBC 10.5
Hgb 12.1
Hct 34.9 L
Plt Count 325
Sodium 135
Potassium 4.2
Chloride 105
Carbon Dioxide 20 L
BUN 7
Creatinine 0.6
Glucose 111 H
Calcium 8.8
Total Bilirubin 0.8
AST 76 H
ALT 237 H
Alkaline Phosphatase 128 H
Vital Signs:
Vital Signs
Temp Pulse Resp BP Pulse Ox
98.3 F 69 16 153/78 98
02/22/24 11:58 02/22/24 11:58 02/22/24 11:58 02/22/24 11:58 02/22/24 11:58
I&O
02/21/24 02/22/24 02/23/24
06:59 06:59 06:59
Intake Total 0 / 0 2720 / 2720
Balance 0 / 0 2720 / 2720
--- NOTE | 2024-02-22 14:29 | W.DS.TRANS ---
DC Summary - Hvac Controls Technician
-
Discharge Instructions:
Discharge Diagnosis/Procedures # Acute pancreatitis suspected gallstone
pancreatitis
# Cholelithiasis
# Choledocholithiasis status post biliary
sphincterotomy
# Leukocytosis
# Essential hypertension
ABDOMINAL MRI RESULTS PER RADIOLOGIST'S
REPORT
'IMPRESSION:
1. Segmental strictures in the distal common
bile duct and right bile duct. Diagnostic
possibilities are (1) primary sclerosing
cholangitis, (2) infectious cholangitis, or (3)
bile duct carcinoma.
2. Stone or debris in the common bile duct.
3. Mild edema around the left adrenal gland.'
Diet Low Fat,As tolerated
Activity As tolerated
Instructions: Amlodipine
Stand-Alone Forms:
Changes to Home Medications: Yes
Discharge Medications:
DC Medications w/original date entered in [facility]
conjugated estrogens 0.625 mg tablet (Premarin) 0.625 mg PO DAILY Hormonal Agent 09/26/23
norethindrone acetate 5 mg tablet 5 mg PO DAILY Hormonal Agent 09/26/23
valsartan 80 mg tablet 80 mg PO HS Blood Pressure 09/26/23
pantoprazole 40 mg tablet,delayed release (Protonix) 40 mg PO DAILY Gastrointestinal Issue 02/20/24
therapeutic multivitamin 1 tab PO DAILY Supplement 02/20/24
amlodipine 2.5 mg tablet 2.5 mg PO DAILY #30 tabs 02/22/24
Home Medication Changes
-Low Dose Amlodipine is a new blood pressure medication
Pending Results: No
Total time spent discharging patient (in min): 43
--- NOTE | 2024-02-22 14:31 | CM ---
Chart reviewed and plan is to home no needs.
Plan; Home no needs.
[2024-02-22 15:32] VITALS: BP 167/85
== END 2024-02-22 18:07 | disposition home or self-care (01) | DRG 440 ==
LOC: 4 WEST ACU 18:06
PROVIDERS: Internal Medicine Gastroenterology; Nurse Practitioner; Physician Assistant; Registered Nurse; ADMITTING PHYSICIAN Hospitalist; EMERGENCY PHYSICIAN Emergency Medicine; FAMILY PHYSICIAN Family Medicine; OTHER PHYSICIAN Internal Medicine; OTHER PHYSICIAN Surgery
PROC: 0FC98ZZ Extirpation of Matter from Common Bile Duct, Via Natural or Artificial Opening Endoscopic (ICD-10-PCS; 2024-02-21)
DX: K85.10 Biliary acute pancreatitis without necrosis or infection (principal); K80.70 Calculus of gallbladder and bile duct without cholecystitis without obstruction; Z87.891 Personal history of nicotine dependence; I10 Essential (primary) hypertension
CPT/HCPCS: 74183; 74330; 76000; 76700; 80048; 80053; 80076; 81003; 81015; 82248; 83690; 85025; 85027; 85610; 96361; 96374; 96375; 99285; A9575; C1769

== ENCOUNTER → 2024-03-30 11:45 | Outpatient (REF) | payer BC, SELFPAY | LOC: PAVMRI 11:45 | PROVIDERS: ATTENDING PHYSICIAN Internal Medicine Gastroenterology; FAMILY PHYSICIAN Family Medicine | DX: R93.89 Abnormal findings on diagnostic imaging of other specified body structures (principal) | CPT/HCPCS: 74183; A9575 ==

== ENCOUNTER 2024-05-01 05:51 | Day surgery (SDC) | payer BC, SELFPAY ==
[2024-04-27 14:09] VITALS: BMI 31.1
--- NOTE | 2024-04-28 16:06 | PTCARENOTE ---
Abn ECG, Dr. Monet notified, no additional actions requested.
[2024-05-01] VITALS (10 sets, daily range): BP systolic 113–150; BP diastolic 47–89; BMI 31.1
--- NOTE | 2024-05-01 07:38 | HP.FOC2 ---
Focused History & Physical
Chief Complaint
HPI:
Chief Complaint: History of choledocholithiasis
HPI / Indication for Planned Procedure: Patient is a 58-year-old female recently hospitalized this past February after workup for acute epigastric abdominal pain identified choledocholithiasis. She underwent ERCP sphincterotomy stone extraction with
Dr. Brandt 02/21/2024. She had follow-up MRCP imaging as an outpatient 03/30/2024 confirms clearance of previous choledocholithiasis and mild focal narrowing of the common bile duct and right hepatic duct felt to be secondary to external compression by an
adjacent blood vessel. No residual gallstones.
Relevant Past Medical History: Hypertension and Other (BMI 31)
Relevant Social History: Negative
Relevant Family History: Negative
Relevant Past Surgical History: Positive for (, stab phlebectomy left lower extremity varicosities)
Review of Systems
Review of Pertinent Systems: All Systems Negative
Medication
See Medication form for detailed medications: Yes
Medication List (including Herbals & OTC):
conjugated estrogens 0.625 mg tablet (Premarin) 0.625 mg PO DAILY Hormonal Agent 09/26/23
norethindrone acetate 5 mg tablet 5 mg PO DAILY Hormonal Agent 09/26/23
valsartan 80 mg tablet 80 mg PO HS Blood Pressure 09/26/23
therapeutic multivitamin 1 tab PO DAILY Supplement 02/20/24
amlodipine 2.5 mg tablet 2.5 mg PO DAILY #30 tabs 02/22/24
Probiotic 1 cap PO DAILY 04/27/24
calcium carbonate 500 mg PO BID 04/27/24
cetirizine 10 mg tablet (Zyrtec) 10 mg PO DAILY PRN allergies 04/27/24
cholecalciferol (vitamin D3) 50 mcg (2,000 unit) capsule (Vitamin D3) 50 mcg PO DAILY 04/27/24
fluticasone propionate 50 mcg/actuation nasal spray,suspension 1 spray intranasal DAILY PRN post nasal drip 04/27/24
Medications Reviewed: Yes
Allergies and Reactions
Patient has Allergies: Yes
Noted Allergies and Reactions:
Allergy/AdvReac Type Severity Reaction Status Date / Time
Sulfa (Sulfonamide Allergy SWELLING Verified 04/27/24 15:51
Antibiotics) AND REDNESS
Pertinent Physical Exam
All Other Systems: Negative
Head/Neck: Normal
Lungs: Normal
Heart: Normal
Abdomen: Normal
Extremities: Normal
Neurological: Normal
Diagnosis / Assessment
58-year-old female with previous history of choledocholithiasis presenting today for cholecystectomy with intraoperative cholangiogram in the setting of previous history of gallstone mediated disease
Plan / Procedure
Laparoscopic cholecystectomy with intraoperative cholangiogram
Anesthesia/Sedation to be done by Anesthesia Provider: Yes
[2024-05-01] MEDS: TYLENOL 1000 MG PO (11:13)
[2024-05-01] MEDS: NORMOSOL-R/PLASMALYTE-A 1000 IV (11:24)
--- NOTE | 2024-05-01 13:50 | W.IMMPOSTOP ---
Addendum entered and electronically signed by Daniel Main MD 05/01/24 13:59:
The assistance of Inez Smiley PA-C was required due to the complexity of the procedure. During the procedure Inez Smiley PA-C assisted with gallbladder retraction, managing the laparoscope, and closure of the surgical sites.
#[id number]
Original Note:
Surgical Immed Post Op Note
-
Primary Surgeon: Jose David
Assisting Surgeon: Inez Smiley PA-C
Pre-op Diagnosis: History of choledocholithiasis
Post-op Diagnosis: History of choledocholithiasis
Procedure Performed: Laparoscopic cholecystectomy with intraoperative cholangiogram
Anesthesia Type: GETA +0.25% Marcaine with epi
Specimen / Cultures: Gallbladder
Estimated Blood Loss: 6 mL
Complications: None immediate
Operative Findings: Physiologically distended gallbladder with few filmy adhesions. Long cystic duct folded upon itself. Anterior and posterior cystic artery branches identified and controlled with clips. Intraoperative cholangiogram confirming
biliary anatomy and no evidence of recurrent choledocholithiasis.
Updated patient's via phone call postoperatively
[2024-05-01] MEDS: DILAUDID 0.25 MG IV (14:04)
== END 2024-05-01 15:53 | disposition home or self-care (01) ==
LOC: SDS 05:51
PROVIDERS: ATTENDING PHYSICIAN Surgery; FAMILY PHYSICIAN Family Medicine
DX: K81.1 Chronic cholecystitis (principal); K82.4 Cholesterolosis of gallbladder; Z87.19 Personal history of other diseases of the digestive system
CPT/HCPCS: 47563; 88304; 36415; 74300; 76000; 93005; A4300